=== PATIENT | male | born 1970 | race Two or more races ===

== ENCOUNTER 2018-11-19 07:07 | Emergency (ER) | payer OTHER ==
[~2018-11-19] VITALS: Ht 177.8 cm; Wt 95.3 kg
== END 2018-11-19 10:08 | disposition home or self-care (01) ==
LOC: ER 07:07
DX: K29.70 Gastritis, unspecified, without bleeding (principal)

== ENCOUNTER 2020-09-12 23:31 | Emergency (ER) | payer OTHER ==
[~2020-09-12] VITALS: Ht 180.3 cm; Wt 90.7 kg
== END 2020-09-13 03:04 | disposition home or self-care (01) ==
LOC: ER 23:31
DX: R55 Syncope and collapse (principal); R00.2 Palpitations; E07.9 Disorder of thyroid, unspecified; Z03.818 Encounter for observation for suspected exposure to other biological agents ruled out

== ENCOUNTER 2020-12-01 09:41 | Outpatient (CLI) | payer OTHER | END 2020-12-01 10:03 | disposition home or self-care (01) | LOC: NUCLEAR 09:41 | PROVIDERS: ATTEND Internal Medicine Gastroenterology | DX: K81.1 Chronic cholecystitis (principal); K82.A2 Perforation of gallbladder in cholecystitis | CPT/HCPCS: 78226; A9537 ==